=== PATIENT | female | born 1930 | race Caucasian/White ===

== ENCOUNTER 2016-04-11 09:54 | Emergency (ER) | payer MEDICARE, BC ==
--- NOTE | 2016-04-11 10:47 | UC ---
UC General HPI - HPI Summary HPI Summary: Patient had a syncopal episode yesterday landed on a side table and has pain in right ribs. denies dizyyness, lightheaded ness now. does not think she hit her head, no headache or injury. is on 2 BP meds. - History of Current Complaint Chief Complaint: UCDizziness Stated Complaint: RIGHT RIB PAIN FROM FALL Time Seen by Provider: 04/11/16 10:30 Hx Obtained From: Patient Onset/Duration: Sudden Onset, Lasting Days Timing: Constant Onset Severity: Moderate Current Severity: Moderate Pain Intensity: 6 - Allergy/Home Medications Allergies/Adverse Reactions: Allergies Allergy/AdvReac Type Severity Reaction Status Date / Time Meperidine [From Demerol HCl] Allergy Intermediate Unknown Verified 04/11/16 10: 28 Reaction Details Home Medications: Home Medications Aspirin EC Low Dose* [Ecotrin EC Low Dose*] 81 mg PO DAILY 04/11/16 [History Confirmed 04/11/16] Bp Med 1 tab PO DAILY 04/11/16 [History Confirmed 04/11/16] Lisinopril TAB* [Prinivil TAB*] 5 mg PO DAILY 04/11/16 [History Confirmed ] PMH/Surg Hx/FS Hx/Imm Hx Previously Healthy: Yes Cardiovascular History Of: Reports: Hypertension Respiratory History Of: Reports: Asthma - Surgical History Surgical History: Yes Surgery Procedure, Year, and Place: lap marni 2012, appy, tonsillectomy, hysterectomy - Family History Known Family History: Positive: Hypertension - Social History Alcohol Use: None Substance Use Type: None Smoking Status (MU): Never Smoked Tobacco Review of Systems Constitutional: Negative Skin: Negative Eyes: Negative ENT: Negative Respiratory: Negative Cardiovascular: Negative Gastrointestinal: Negative Genitourinary: Negative Motor: Negative Neurovascular: Negative Musculoskeletal: Arthralgia, Edema, Myalgia Neurological: Negative Psychological: Negative All Other Systems Reviewed And Are Negative: Yes Physical Exam Triage Information Reviewed: Yes Appearance: Well-Appearing, Well-Nourished, Pain Distress Vital Signs: Initial Vital Signs Temp 99.5 F 04/11/16 10:30 Pulse 91 04/11/16 10:30 Resp 16 04/11/16 10:30 BP 153/67 04/11/16 10:30 Pulse Ox 100 04/11/16 10:30 Vital Signs Reviewed: Yes Eye Exam: Normal Eyes: Positive: Conjunctiva Clear ENT Exam: Normal ENT: Positive: Normal ENT inspection, Pharynx normal, TMs normal Dental Exam: Normal Neck exam: Normal Neck: Positive: Supple, Nontender, No Lymphadenopathy Respiratory Exam: Normal Respiratory: Positive: Chest non-tender, Lungs clear, No respiratory distress, No accessory muscle use, Decreased breath sounds Cardiovascular Exam: Normal Cardiovascular: Positive: RRR, No Murmur, Pulses Normal Abdominal Exam: Normal Abdomen Description: Positive: Nontender, No Organomegaly, Soft Bowel Sounds: Positive: Present Musculoskeletal: Positive: Strength Intact, ROM Limited @ - trunk movment, Edema @ - right trunk along ribs Neurological Exam: Normal Neurological: Positive: Alert, Muscle Tone Normal Psychological Exam: Normal Psychological: Positive: Age Appropriate Behavior Skin Exam: Normal Course/Dx - Course Course Of Treatment: hx obtained, exam performed, patient is febrile, UA positive, chest xray negative, orthostatic BP are WNL. BP is eleveated, recommend follow up with MD. treated with keflex - Differential Dx - Multi-Symptom Provider Diagnoses: UTI. rib contusion. fever Discharge - Discharge Plan Condition: Stable Disposition: HOME Patient Education Materials: Urinary Tract Infection in Women (ED), Rib Contusion (ED) Additional Instructions: Take the medication as prescribed. I recommend follow up with your Primary MD in one week to make sure you are healing from your rib fracture and that your UTI is clearing up, sooner if you develop worsening symptoms. Also your Blood pressure was high today, may need medication adjustment.
[2016-04-11 11:22] VITALS: BP 183/73
--- NOTE | 2016-04-11 11:44 | RAD ---
INDICATION: Right rib pain COMPARISON: Chest x-ray February 02, 2009 TECHNIQUE: Multiple views of the ribs were obtained. FINDINGS: Bones: There is no evidence of acute nondisplaced rib fracture. Evaluation is limited due to osteopenia. LUNGS: The lungs are clear. There is no pneumothorax. Pleural spaces: There is no evidence of hemothorax. Other: None IMPRESSION: NO DISPLACED RIB FRACTURE IS SEEN. LIMITED EVALUATION DUE TO OSTEOPENIA.
== END 2016-04-11 12:47 | disposition home or self-care (01) ==
LOC: UCCORT 09:54
DX: S20.20XA Contusion of thorax, unspecified, initial encounter (principal); W18.09XA Striking against other object with subsequent fall, initial encounter; Y93.9 Activity, unspecified; Y92.9 Unspecified place or not applicable; N39.0 Urinary tract infection, site not specified; R50.9 Fever, unspecified; Z88.8 Allergy status to other drugs, medicaments and biological substances; I10 Essential (primary) hypertension
CPT/HCPCS: 87086; 93005; 99202; G0463

== ENCOUNTER 2017-07-31 16:12 | Observation (INO) | payer MEDICARE, BC ==
[2017-07-31] MEDS ORDERED: NS 0.9% 1000 ML* 1,000 ML IV ONE (16:15)
--- NOTE | 2017-07-31 16:32 | RAD ---
INDICATION: Neurologic changes, code lora. COMPARISON: There are no prior studies available for comparison. TECHNIQUE: Contiguous axial sections of the brain were obtained from the skull base to the vertex without contrast. FINDINGS: The ventricles, cisterns and sulci are enlarged consistent with diffuse atrophy. There are multiple focal areas of decreased density in the subcortical and periventricular white matter suggestive of moderate chronic small vessel ischemic changes. No other focal abnormality or mass effect is seen. There is no evidence for hemorrhage. No significant focal osseous abnormality is seen. The visualized portion of the paranasal sinuses and mastoid air cells appear clear. The results of this exam were called to referring clinician at 1627 hours. IMPRESSION: 1. NO EVIDENCE FOR GROSS ACUTE INFARCT, MASS EFFECT OR HEMORRHAGE. 2. ATROPHY AND FINDINGS MOST CONSISTENT WITH MODERATE CHRONIC SMALL VESSEL ISCHEMIC CHANGES.
--- NOTE | 2017-07-31 17:01 | RAD ---
INDICATION: Neurologic changes code lora. COMPARISON: Comparison is made with a prior study from February 02, 2009. TECHNIQUE: A portable view of the chest was obtained. FINDINGS: The heart is mildly enlarged and unchanged. The lungs are hyperinflated and clear. No pleural effusion is seen. IMPRESSION: NO EVIDENCE FOR ACUTE DISEASE.
[2017-07-31 17:14] LABS: INR 0.87 (0.77-1.02)
[2017-07-31 17:19] LABS: ABS Basophils 0.1 10^3/ul (0-0.2); ABS Eosinophils 0.1 10^3/ul (0-0.6); ABS Lymphocytes 1.1 10^3/ul (1.0-4.8); ABS Monocytes 0.7 10^3/ul (0-0.8); ABS Neutrophils 18.1 10^3/ul (1.5-7.7); ABS Nucleated RBC 0 10^3/ul; Eosinophil % 0.4 % (0-6); Hematocrit 44 % (35-47); Hemoglobin 14.8 g/dl (12.0-16.0); Lymphocyte % 5.4 % (25-47); Mean Corpuscular HGB Conc 34 g/dl (31-36); Mean Corpuscular Hemoglobin 31 pg (27-31); Mean Corpuscular Volume 91 fL (80-97); Mean Platelet Volume 7.2 um3 (7.4-10.4); Nucleated Red Blood Cells % 0; Platelet Count 285 10^3/ul (150-450); Red Blood Count 4.82 10^6/ul (4.0-5.4); Red Cell Distribution Width 13 % (10.5-15)
[2017-07-31 17:37] LABS: EGFR Non-African American 41.6 (>60)
[2017-07-31] MEDS ORDERED: Aspirin TAB* 325 MG PO ONE (17:56)
[2017-07-31] MEDS ORDERED: Aspirin 81 mg CHEW TAB* 81 MG TAB.CHEW PO ONE (18:29)
--- NOTE | 2017-07-31 18:36 | ED ---
Beau Morris Tiffany, scribed for Viral Iverson MD on 07/31/17 at 1644 . Neurological HPI - HPI Summary HPI Summary: The patient is an 86 y/o F BIBA complains of left-sided facial droop since 15: 40 today. Symptoms aggravated by nothing. Symptoms alleviated by nothing. Denies chest pain. Patient was on phone with daughter at 15:00 today. Per daughter, patient reported not feeling well, stomach was hurting, then phone went silent at 15:10. Daughter asked cousin to stop by patient's house, found her unconscious so called 911. Per EMS, patient was on floor upon arrival at 15: 42. EMS reports no speech, diaphoresis, paleness, left arm not working. Three days ago, daughter reports that patient tripped on and fell from sneaker, but hadn't said anything about it until yesterday. Daughter reports no hx of stroke. - History of Current Complaint Chief Complaint: EDNeurologicalDeficit Stated Complaint: CODE DUEÑAS Time Seen by Provider: 07/31/17 16:15 Hx Obtained From: Family/Consumer Education Specialist - Daughter, EMS Onset/Duration: Sudden Onset, Started minutes ago - 1540 today, Still Present Timing: Constant Aggravating: Nothing Alleviating: Nothing Associated Signs and Symptoms: Negative: Chest Pain - Allergy/Home Medications Allergies/Adverse Reactions: Allergies Allergy/AdvReac Type Severity Reaction Status Date / Time meperidine [From Demerol] Allergy Intermediate Unknown Verified 07/31/17 17:54 Reaction Details Home Medications: Home Medications amLODIPine TAB* [Norvasc 5 mg TAB*] 5 mg PO DAILY 07/31/17 [History Confirmed ] PMH/Surg Hx/FS Hx/Imm Hx Previously Healthy: No Cardiovascular History: Reports: Hx Hypertension Respiratory History: Reports: Hx Asthma Neurological History: Denies: Hx Transient Ischemic Attacks (TIA) - Cancer History Cancer Type, Location and Year: skin cancer w/ 2 excisions (right neck & right shoulder) - Surgical History Surgery Procedure, Year, and Place: lap marni 2012, appy, tonsillectomy, hysterectomy Infectious Disease History: No Infectious Disease History: Denies: Traveled Outside the [place] in Last 30 Days - Family History Known Family History: Positive: Hypertension - Social History Alcohol Use: None Hx Substance Use: No Substance Use Type: Reports: None Hx Tobacco Use: No Smoking Status (MU): Never Smoked Tobacco Review of Systems Positive: Skin Diaphoresis, Other - Paleness Negative: Chest Pain Neurological: Other - left-sided facial droop, no speech, LOC, left arm not working All Other Systems Reviewed And Are Negative: Yes Physical Exam - Summary Physical Exam Summary: General: well-appearing, no pain distress Skin: warm, color reflects adequate perfusion, dry Head: normal Eyes: EOMI, MARIS ENT: normal Neck: supple, nontender Respiratory: CTA, breath sounds present Cardiovascular: RRR Abdomen: soft, nontender Bowel: present Musculoskeletal: normal, strength/ROM intact Neurological: Quiet but responds to voice, speaks with 1 or 2 words, opens eyes on her own, answers questions on her own Psychological: affect/mood appropriate Triage Information Reviewed: Yes Vital Signs On Initial Exam: Initial Vitals Temp Pulse Resp BP Pulse Ox 96.9 F 94 18 161/67 96 07/31/17 16:24 07/31/17 16:24 07/31/17 16:24 07/31/17 16:24 07/31/17 16:24 Vital Signs Reviewed: Yes Diagnostics - Vital Signs Vital Signs Temp Pulse Resp BP Pulse Ox 07/31/17 16:24 96.9 F 94 18 161/67 96 - Laboratory Lab Results: Lab Results 07/31/17 07/31/17 07/31/17 Range/Units 16:29 16:51 17:10 WBC 20.0 H (3.5-10.8) 10^3/ul RBC 4.82 (4.0-5.4) 10^6/ul Hgb 14.8 (12.0-16.0) g/dl Hct 44 (35-47) % MCV 91 (80-97) fL MCH 31 (27-31) pg MCHC 34 (31-36) g/dl RDW 13 (10.5-15) % Plt Count 285 (150-450) 10^3/ul MPV 7.2 L (7.4-10.4) um3 Neut % (Auto) 90.1 H (38-83) % Lymph % (Auto) 5.4 L (25-47) % Mcminn % (Auto) 3.7 (0-7) % Eos % (Auto) 0.4 (0-6) % Baso % (Auto) 0.4 (0-2) % Absolute Neuts (auto) 18.1 H (1.5-7.7) 10^3/ul Absolute Lymphs (auto) 1.1 (1.0-4.8) 10^3/ul Absolute Monos (auto) 0.7 (0-0.8) 10^3/ul Absolute Eos (auto) 0.1 (0-0.6) 10^3/ul Absolute Basos (auto) 0.1 (0-0.2) 10^3/ul Absolute Nucleated RBC 0 10^3/ul Nucleated RBC % 0 INR (Anticoag Therapy) 0.87 (0.77-1.02) APTT 25.7 L (26.0-36.3) seconds Sodium (139-145) mmol/L Potassium (3.5-5.0) mmol/L Chloride (101-111) mmol/L Carbon Dioxide (22-32) mmol/L Anion Gap (2-11) mmol/L BUN (6-24) mg/dL Creatinine (0.51-0.95) mg/dL Est GFR ( Amer) (>60) Est GFR (Non-Af Amer) (>60) BUN/Creatinine Ratio (8-20) Glucose (70-100) mg/dL POC Glucose (mg/dL) 189 H (70-100) mg/dL Lactic Acid (0.5-2.0) mmol/L Calcium (8.6-10.3) mg/dL Total Bilirubin (0.2-1.0) mg/dL AST (13-39) U/L ALT (7-52) U/L Alkaline Phosphatase (34-104) U/L Troponin I (<0.04) ng/mL Total Protein (6.4-8.9) g/dL Albumin (3.2-5.2) g/dL Globulin (2-4) g/dL Albumin/Globulin Ratio (1-3) Triglycerides mg/dL Cholesterol mg/dL LDL Cholesterol mg/dL HDL Cholesterol mg/dL Blood Type Antibody Screen 07/31/17 07/31/17 07/31/17 Range/Units 17:10 17:10 17:10 WBC (3.5-10.8) 10^3/ul RBC (4.0-5.4) 10^6/ul Hgb (12.0-16.0) g/dl Hct (35-47) % MCV (80-97) fL MCH (27-31) pg MCHC (31-36) g/dl RDW (10.5-15) % Plt Count (150-450) 10^3/ul MPV (7.4-10.4) um3 Neut % (Auto) (38-83) % Lymph % (Auto) (25-47) % Mcminn % (Auto) (0-7) % Eos % (Auto) (0-6) % Baso % (Auto) (0-2) % Absolute Neuts (auto) (1.5-7.7) 10^3/ul Absolute Lymphs (auto) (1.0-4.8) 10^3/ul Absolute Monos (auto) (0-0.8) 10^3/ul Absolute Eos (auto) (0-0.6) 10^3/ul Absolute Basos (auto) (0-0.2) 10^3/ul Absolute Nucleated RBC 10^3/ul Nucleated RBC % INR (Anticoag Therapy) (0.77-1.02) APTT (26.0-36.3) seconds Sodium 132 L (139-145) mmol/L Potassium 3.5 (3.5-5.0) mmol/L Chloride 99 L (101-111) mmol/L Carbon Dioxide 22 (22-32) mmol/L Anion Gap 11 (2-11) mmol/L BUN 21 (6-24) mg/dL Creatinine 1.23 H (0.51-0.95) mg/dL Est GFR ( Amer) 53.5 (>60) Est GFR (Non-Af Amer) 41.6 (>60) BUN/Creatinine Ratio 17.1 (8-20) Glucose 286 H (70-100) mg/dL POC Glucose (mg/dL) (70-100) mg/dL Lactic Acid 2.7 H* (0.5-2.0) mmol/L Calcium 9.3 (8.6-10.3) mg/dL Total Bilirubin 0.40 (0.2-1.0) mg/dL AST 20 (13-39) U/L ALT 14 (7-52) U/L Alkaline Phosphatase 64 (34-104) U/L Troponin I 0.00 (<0.04) ng/mL Total Protein 6.6 (6.4-8.9) g/dL Albumin 4.0 (3.2-5.2) g/dL Globulin 2.6 (2-4) g/dL Albumin/Globulin Ratio 1.5 (1-3) Triglycerides 126 mg/dL Cholesterol 235 mg/dL LDL Cholesterol 159 mg/dL HDL Cholesterol 50.6 mg/dL Blood Type O Negative Antibody Screen Negative Result Diagrams: 07/31/17 17:10 07/31/17 17:10 Lab Statement: Any lab studies that have been ordered have been reviewed, and results considered in the medical decision making process. - Radiology CXR Radiology Interpretation Completed By: Radiologist - 1. NO EVIDENCE FOR GROSS ACUTE INFARCT, MASS EFFECT OR HEMORRHAGE. 2. ATROPHY AND FINDINGS MOST CONSISTENT WITH MODERATE CHRONIC SMALL VESSEL ISCHEMIC CHANGES. - CT Brain CT Interpretation Completed By: Radiologist - 1. NO EVIDENCE FOR GROSS ACUTE INFARCT, MASS EFFECT OR HEMORRHAGE. 2. ATROPHY AND FINDINGS MOST CONSISTENT WITH MODERATE CHRONIC SMALL VESSEL ISCHEMIC. ED physician has reviewed this report. - EKG 16:24 Cardiac Rate: NL - 94 BPM EKG Rhythm: Sinus Rhythm Ectopy: None EKG Interpretation: Borderline T abnormalities in the inferior leads. NIH Scale - NIH Scale Level of Consciousness: Responds to Minor Stimulation Ask Patient the Month and His/Her Age: Both Correct Ask Pt to Open/Close Eyes and Yard Coordinator/Release Non-Paretic Hand: Both Correctly Best Gaze (Only Horizontal Eye Movement): Normal Visual Field Testing: No Visual Loss Facial Paresis-Pt to Smile & Close Eyes or Grimace Symmetry: Minor Paralysis Motor Function - Right Arm: No Drift-Holds 10 Seconds Motor Function - Left Arm: No Effort Against [place] Motor Function - Right Leg: No Drift-Holds 10 Seconds Motor Function - Left Leg: Effort Against [place] Limb Ataxia-Must be out of Proportion to Weakness Present: Absent Sensory (Use Pinprick to Test Arms/Legs/Trunk/Face): Normal Best Language (Describe Picture, Name Items): No Aphasia Dysarthria (Read Several Words): Normal Extinction and Inattention: No Abnormality Total Score: 7 Course/Dx - Course Course Of Treatment: Medications reviewed. Allergies noted. DISCUSSED WITH STRONG NEUROLOGY. RAPID NEUROLOGIC SX IMPROVEDMENT IN ED. NIH ZERO ON HIS EXAM THEREFORE, NO TPA AT THIS TIME. WILL ADMIT FOR FURTHER EVALUATION. ADMIT HOSPITALIST. - Diagnoses Provider Diagnoses: TIA (transient ischemic attack), Altered mental state During the Visit The Following Alert/Code Occurred: Code Dueñas - 1350 - Physician Notifications Discussed Care Of Patient With: Glen Garcia Time Discussed With Above Provider: 17:52 Instructed by Provider To: Other - Dr. Garcia, hospitalist, recommends getting head and neck CTA. - Critical Care Time Critical Care Time: 30-74 min Discharge - Sign-Out/Discharge Documenting (check all that apply): Discharge/Admit/Transfer - Discharge Plan Condition: Stable Disposition: ADMITTED TO [facility] Referrals: Janice Richardson MD [Primary Care Provider] - - Billing Disposition and Condition Condition: STABLE Disposition: [facility] [place] The documentation as recorded by the Beau kamara Tiffany accurately reflects the service I personally performed and the decisions made by me, Viral Iverson MD.
[2017-07-31] MEDS ORDERED: Ondansetron ODT TAB* 4 MG SL PRN (18:37)
[2017-07-31] MEDS ORDERED: Iodixanol* (CONTRAST) 320 MG/ML 100 ML SDV IV SCH (18:48)
[2017-07-31] MEDS: Atorvastatin* 40 MG TAB PO SCH (19:52)
[2017-07-31] MEDS: NS 0.9% 1000 ML* 1,000 ML IV SCH (19:53)
--- NOTE | 2017-07-31 21:13 | RAD ---
INDICATION: Altered mental status left face arm and leg weakness, resolved. COMPARISON: Comparison is made with a prior CT of the brain of the same day. TECHNIQUE: A CT angiogram of the head and neck was performed following intravenous injection of 80 ml of Visipaque 320 nonionic contrast. Contiguous axial sections were obtained from the thoracic inlet through the skull vertex. Images were reconstructed in the coronal and sagittal planes and in a 3-D volume rendered format. The distal cervical internal carotid artery diameter is used as the denominator for stenosis measurement. FINDINGS: RIGHT CAROTID: The common carotid artery appears widely patent. There is mild calcific soft plaque within the carotid bulb and proximal internal carotid artery giving rise to approximately a 20% stenosis. LEFT CAROTID: The left common carotid artery is widely patent. There is moderate soft and calcific plaque present within the carotid bulb and proximal internal carotid artery giving rise to approximately a 40% stenosis. No hemodynamically significant stenosis is seen. VERTEBRALS: The vertebral arteries appear widely patent. CTA BRAIN: The internal carotid, anterior and middle cerebral arteries appear patent without evidence for high-grade stenosis or occlusion. There is calcific plaque present within the cavernous portion of the internal carotid arteries. The vertebral, basilar and posterior cerebral arteries appear patent without evidence for high-grade stenosis or occlusion. No gross focal perfusion abnormalities are seen. No aneurysm or vascular malformation is seen. NECK: No significant enlarged lymph nodes are seen within the neck. The thyroid, parotid and submandibular glands appear to be within normal limits. The lung apices appear clear. The paranasal sinuses and mastoid air cells appear clear IMPRESSION: 1. NO EVIDENCE FOR HEMODYNAMICALLY SIGNIFICANT CAROTID STENOSIS. 2. NO EVIDENCE FOR LARGE VESSEL INTRACRANIAL THROMBUS. CPT II Codes: 3100F
[2017-07-31] MEDS: Heparin VIAL(*) 5000 UNITS/ML VIAL (FIVE THOUSAND) SUBCUT SCH (21:16)
--- NOTE | 2017-07-31 21:43 | HP ---
CC: Dr. Richardson * [facility] MEDICINE HISTORY AND PHYSICAL: DATE OF ADMISSION: 07/31/17 PRIMARY CARE PHYSICIAN: Dr. Richardson. ATTENDING PHYSICIAN: Agus Garcia MD * (dictation provided by Grace Boateng NP) CHIEF COMPLAINT: Unresponsive episode with left-sided weakness. HISTORY OF PRESENT ILLNESS: Ms. Rand is an 86-year-old female with a past medical history of hypertension, who presents to the hospital today after having an unresponsive episode followed by left-sided weakness. Ms. Rand reports that she was feeling well yesterday with no acute complaints. When she awoke this morning, she did not feel well, but she is unable to characterize that further. She seems to describe just feeling tired and having some generalized malaise. The family who are at the bedside reports that she had fallen a couple of weeks ago and had some bruising along her ribs and since then had been complaining of not feeling so well. The patient this morning per the family's report also had complained of some nausea and when I reminded the patient of this, she does agree. The patient at about 3:10 p.m. was on the phone with her daughter when she suddenly disconnected the call unexpectedly. The daughter tried to call back, but the mother did not answer the phone. The daughter called over another family member to check on the patient and per one report the patient was on the floor, but per the report from the family that I have obtained today, she was actually sitting in her recliner. The family reports that she was minimally responsive to unresponsive and therefore EMS was called. On EMS' arrival, they report that she had left-sided facial droop and left- sided weakness of both upper and lower extremity. They transported her here and at least by the time she arrived, she was more awake and interactive and talking to the emergency room doctors. The emergency room doctor states that she had persistent left upper extremity weakness with only some minimal lower extremity weakness and he did not specifically note a left-sided facial droop. The patient did seem a bit confused, although she would answer yes and no questions well. By the time the telestroke were contacted and brought in to the room, the patient's symptoms had resolved. In addition to this, since arriving to the emergency room, Ms. Rand has had copious liquid diarrhea. She reports some tenderness in her abdomen that is generalized. Her abdomen is soft. She states that she has had no diarrhea up until this point. Nursing staff report that she is unable to control her bowels and is continuously leaking liquid stool; stool is brown. No melena or blood in the stool. The patient denies any cramping. She denies any nausea, but just states that it is mildly tender with deep palpation throughout. In addition to this diarrhea in the emergency room, she was noted to have a white blood cell count of 20. We have no previous for comparison. She has hyponatremia with sodium of 132; again no previous. Her creatinine is 1.23. Lactic acid is 2.7. Glucose is 286. Her troponin is 0.00. CRP is pending. Because of the concern for stroke, the patient went for a CT of the brain, which showed "no evidence for gross acute infarct, mass effect, hemorrhage, atrophy and findings most consistent with moderate chronic small vessel ischemic changes." She had a chest x-ray, which showed no evidence for acute disease. EKG showed sinus rhythm with a heart rate of about 90, no evidence of ischemia. PAST MEDICAL HISTORY: 1. Hypertension. 2. Questions of heart murmur. 3. Aortic aneurysm. 4. Cholecystectomy. 5. Tonsillectomy. 6. Appendectomy. 7. Hysterectomy. 8. History of skin cancer to right arm and neck. MEDICATIONS: Outpatient are: 1. Aspirin 81 mg p.o. daily. 2. Amlodipine 5 mg p.o. daily. 3. Lisinopril 20 mg p.o. daily. ALLERGIES: MEPERIDINE. FAMILY HISTORY: The patient reports mother and father related to old age. The family offered that the mother had dementia and her father had coronary artery disease. SOCIAL HISTORY: No report of alcohol, tobacco, or drug use. The patient lives alone. She states her healthcare proxy will be Amadou, her son. REVIEW OF SYSTEMS: A 14-point review of systems was completed with Ms. Rand and all those not mentioned above were negative. PHYSICAL EXAMINATION GENERAL: Ms. Rand is lying in the bed with the family at the bedside. She is in no acute distress. She is hard of hearing. VITAL SIGNS: Blood pressure 176/71, heart rate 97, temperature 96.9, respiratory rate 23, O2 saturation 98% on room air. LUNGS: Clear to auscultation bilaterally with no accessory muscle use and good aeration. HEART: S1, S2. No murmur, rub, or gallop appreciated today. ABDOMEN: Soft. There is generalized tenderness throughout with deep palpation. There is no rebound or guarding. Bowel sounds are positive. EXTREMITIES: No cyanosis or edema. NEURO: She is alert. She is oriented x3. She moves all extremities equally. There is no facial asymmetry or focal weakness. Extraocular movements are intact. There is no ataxia. There is no pronator drift. SKIN: Intact. The patient does have some bruising noted on both upper extremities. LABORATORY DATA/DIAGNOSTIC STUDIES: Sodium 132, potassium 3.5, chloride 99, serum bicarbonate 22, BUN 21, creatinine 1.23, glucose 286. Lactic acid 2.7. WBC 20.0, hemoglobin 14.8, hematocrit 44, platelet count 285. INR 0.87. CT brain and chest x-ray and EKG all as read per above. ASSESSMENT AND PLAN: Ms. Rand is an 86-year-old female with a past medical history of hypertension, who presents to the hospital today with concern for an unresponsive episode followed by left-sided weakness when she awoke, now with copious liquid diarrhea in the emergency room. Our plans are for observation in the hospital for the followin. Unresponsiveness followed by left-sided weakness: Certainly, these symptoms are concerning for stroke and/or possibly seizure. The patient is completely asymptomatic at this point. Recommendation in terms of workup for TIA/stroke would include CTA head and neck and MRI brain. The patient will have telemetry monitoring and a transthoracic echocardiogram. Plan to start atorvastatin for abnormal cholesterol profile at 40 mg a day. The patient has had aspirin in the emergency room per the emergency room nurse. For concern of seizure, plan to check EEG tomorrow. However, based on the fact that the patient has had copious diarrhea in the emergency room and has a white blood cell count of 20 with slight tachycardia, I suspect that some of presentation is likely related to acute onset of diarrheal illness. She denies any recent exposure to antibiotics or any sick contacts. She denies any unusual food intakes that were suspicious. Plan to check blood, stool cultures and to provide intravenous fluids. She does just meet sepsis criteria with a heart rate of 100 and white blood cell count of 20; however, her blood pressure is 160 and I am hesitant to hydrate with a full 30 mL/kg given that there is also concern for stroke and that elevated blood pressure much above 160 would not be tolerated well. She has had 1000 mL of normal saline in the emergency room. We will continue with 150 mL per hour for 2 additional bags. We will continue to monitor closely and add additional fluids as needed or as can be tolerated. I have reached out with a phone call to Dr. Mejia, but I have not received a call back from him yet. If we would not hear from him tonight, we will talk to Neurology again tomorrow regarding possible consultation. 2. Hypertension. Plan to continue amlodipine, but for the moment, I am holding lisinopril for the a.m. until her blood pressure can be reevaluated. 3. DVT prophylaxis with heparin subcu. 4. Code status is full code. TIME SPENT: Approximately 60 minutes were spent on the admission of this patient, and more than half of the time was spent with the patient at the bedside reviewing the events leading up to this hospitalization, performing the physical examination and reviewing my plan of care. GRACE BOATENG NP [id number]/CPS #: [id number] TOR
[2017-08-01] MEDS: NS 0.9% 1000 ML* 1,000 ML IV SCH (03:56)
[2017-08-01 06:17] LABS: ABS Basophils 0 10^3/ul (0-0.2); ABS Eosinophils 0 10^3/ul (0-0.6); ABS Lymphocytes 1.6 10^3/ul (1.0-4.8); ABS Monocytes 0.9 10^3/ul (0-0.8); ABS Neutrophils 14.6 10^3/ul (1.5-7.7); ABS Nucleated RBC 0 10^3/ul; Eosinophil % 0 % (0-6); Hematocrit 37 % (35-47); Hemoglobin 12.8 g/dl (12.0-16.0); Lymphocyte % 9.1 % (25-47); Mean Corpuscular HGB Conc 35 g/dl (31-36); Mean Corpuscular Hemoglobin 31 pg (27-31); Mean Corpuscular Volume 90 fL (80-97); Mean Platelet Volume 7.5 um3 (7.4-10.4); Nucleated Red Blood Cells % 0; Platelet Count 249 10^3/ul (150-450); Red Blood Count 4.12 10^6/ul (4.0-5.4); Red Cell Distribution Width 13 % (10.5-15); White Blood Count 17.1 10^3/ul (3.5-10.8)
[2017-08-01 06:33] LABS: EGFR Non-African American 72.5 (>60)
[2017-08-01] MEDS: Heparin VIAL(*) 5000 UNITS/ML VIAL (FIVE THOUSAND) SUBCUT SCH ×3 (08:29→21:28)
[2017-08-01] MEDS: Aspirin EC TAB* 81 MG TAB.EC PO SCH (08:29)
[2017-08-01] MEDS: amLODIPine TAB* 5 MG PO SCH (08:29)
[2017-08-01] MEDS: Acetaminophen TAB* 325 MG PO PRN ×2 (09:54→17:25)
[2017-08-01 10:40] LABS: Urine Appearance Cloudy; Urine Blood 2+ (Negative); Urine Color Yellow; Urine Ketones Negative (Negative); Urine Protein Negative (Negative); Urine Specific Gravity 1.028 (1.010-1.030); Urine Urobilinogen Negative (Negative)
--- NOTE | 2017-08-01 13:58 | RAD ---
INDICATION: Left-sided weakness, resolved. COMPARISON: Comparison is made with a prior CT of the brain from July 31, 2017. TECHNIQUE: Sagittal T1, axial T1, T2, susceptibility, FLAIR and diffusion weighted images were obtained. FINDINGS: The ventricles, cisterns and sulci are prominent consistent with diffuse atrophy. There are focal areas of increased signal intensity on T2-weighted images present in the subcortical and periventricular white matter most consistent with moderate chronic small vessel ischemic changes. No other focal abnormality or mass effect is seen. No areas of restricted diffusion are present. There is no evidence for infarct or hemorrhage. The visualized portion of the paranasal sinuses and mastoid air cells appear clear. IMPRESSION: 1. NO EVIDENCE FOR ACUTE INTRACRANIAL ABNORMALITY. 2. ATROPHY AND MODERATE CHRONIC SMALL VESSEL ISCHEMIC CHANGES.
[2017-08-01] MEDS: Atorvastatin* 40 MG TAB PO SCH (17:18)
--- NOTE | 2017-08-01 17:45 | ECHO ---
Patient: [facility] Rec#: [id number] : 1930 Date: 08/01/2017 Age: 86y Height: 157.48 cm / 62.0 in Weight: 63.05 kg / 139.0 lbs Sex: F BSA: 1.64 Room#: [facility] Admit Date#: 07/31/2017 Type: Inpatient Referring: Grace Boateng NP Reading: Darshan Chandler MD [place] Worker: Stephany LeivaRDCS,RDMS Transthoracic Echocardiogram Indication: TIA BP: 132/43 HR: 95 Rhythm: NSR Findings History: HTN, murmur, AO aneurysm Technical Comments: The study quality is good. Left Ventricle: The left ventricular chamber size is normal. Mild concentric left ventricular hypertrophy is observed. Global left ventricular wall motion and contractility are within normal limits. There is normal left ventricular systolic function. The estimated ejection fraction is 60-65%. Abnormal left ventricular diastolic function is observed. Left Atrium: The left atrium is mildly dilated. Right Ventricle: The right ventricular chamber size and systolic function are within normal limits. Right Atrium: The right atrial cavity size is normal. Aortic Valve: The aortic valve is trileaflet. Systolic excursion of the aortic valve is normal. There is trace to mild aortic regurgitation. Mitral Valve: The mitral valve leaflets are mildly thickened. There is no evidence of mitral regurgitation. There is no evidence of mitral stenosis. Tricuspid Valve: The tricuspid valve leaflets are normal. There is trace tricuspid regurgitation. There is evidence of mild pulmonary hypertension. Pulmonic Valve: There is trace to mild pulmonic regurgitation. Pericardium: There is no significant pericardial effusion. Aorta: The aortic root appears normal. There is no dilatation of the aortic arch. Pulmonary Artery: The main pulmonary artery appears normal. Venous: The inferior vena cava appears normal in size. There is a greater than 50% respiratory change in the inferior vena cava dimension. Conclusions Mild concentric left ventricular hypertrophy is observed. Global left ventricular wall motion and contractility are within normal limits. There is normal left ventricular systolic function. The estimated ejection fraction is 60-65%. The right ventricular chamber size and systolic function are within normal limits. There is trace to mild aortic regurgitation. There is no evidence of mitral regurgitation. There is trace tricuspid regurgitation. There is no significant pericardial effusion. Measurements Name Value Normal Range RVIDd (AP) 2D 2.4 cm (0.9 - 2.6) RVDdMajor (2D) 2.3 cm (2.2 - 4.4) RAd ISD 4CH 4.9 cm (3.4 - 4.9) RA (A4C)W 3.3 cm (2.9 - 4.6) IVSd (2D) 1.1 cm (0.6 - 1) LVPWd (2D) 1.1 cm (0.6 - 1) LVIDd (2D) 3.7 cm (3.6 - 5.4) LVIDs (2D) 2.5 cm - LV FS (2D) 32 % (25 - 45) Aortic Annulus 2.1 cm (1.4 - 2.6) Ao root diameter (2D) 3.3 cm (2.1 - 3.5) Ascending Ao 3.2 cm (2.1 - 3.4) Aortic arch 3.4 cm (1.8 - 3.4) LA dimension (AP) 2D 3.6 cm (2.3 - 3.8) LAd ISD 4CH 5.1 cm (2.9 - 5.3) LA ISD 4CH W 3.7 cm (2.5 - 4.5) Name Value Normal Range LA ESV SP 4CH (A/L) 43.56 ml - LA ESV SP 2CH (A/L) 88.04 ml - LA ESV BP (A/L) 67.78 ml - LA ESV BP (A/L) index 41 ml/m2 - LA ESV SP 4CH (MOD) 41.39 ml - LA ESV SP 2CH (MOD) 85.54 ml - Name Value Normal Range MV E-wave Vmax 1 m/sec - MV deceleration time 170 msec - MV A-wave Vmax 0.8 m/sec - MV E:A ratio 1.3 ratio - P. vein S-wave Vmax 0.6 m/sec - P. vein D-wave Vmax 0.5 m/sec - P. vein S:D Vmax ratio 1 ratio - P. vein A-wave duration 61 msec - LV septal e' Vmax 0.08 m/sec - LV lateral e' Vmax 0.08 m/sec - LV E:e' septal ratio 12.5 ratio - LV E:e' lateral ratio 12.5 ratio - Name Value Normal Range AV Vmax 1.6 m/sec - AV VTI 28 cm - AV peak gradient 10 mmHg - AV mean gradient 4.4 mmHg - LVOT Vmax 1.3 m/sec - LVOT VTI 24.1 cm - LVOT peak gradient 7 mmHg - LVOT mean gradient 3.1 mmHg - DONALDO Vmax 0.7 m/sec - Name Value Normal Range TR Vmax 2.8 m/sec - TR peak gradient 31 mmHg - RAP 3 mmHg - RVSP 34 mmHg - IVC diameter 1.9 cm - Name Value Normal Range PV Vmax 1.3 m/sec - PV peak gradient 7 mmHg -
--- NOTE | 2017-08-01 19:19 | PN ---
Subjective Date of Service: 08/01/17 Interval History: Patient reports she isnt sure what happened. she denies hx of seizures in the past. denies left sided weakness. Offers no complaints at this time. Objective Active Medications: Acetaminophen (Tylenol Tab*) 650 mg PO Q6H PRN PRN Reason: FEVER/PAIN Last Admin: 08/01/17 17:25 Dose: 650 mg Amlodipine Besylate (Norvasc Tab*) 5 mg PO DAILY [facility] Last Admin: 08/01/17 08:29 Dose: 5 mg Aspirin (Aspirin Ec Tab*) 81 mg PO DAILY [facility] Last Admin: 08/01/17 08:29 Dose: 81 mg Atorvastatin Calcium (Lipitor*) 40 mg PO 1700 [facility] Last Admin: 08/01/17 17:18 Dose: 40 mg Heparin Sodium (Porcine) (Heparin Vial(*)) 5,000 units SUBCUT Q8HR [facility] Last Admin: 08/01/17 12:56 Dose: 5,000 units Sodium Chloride (Ns 0.9% 1000 Ml*) 1,000 mls @ 150 mls/hr IV PER RATE [facility] Stop: 08/02/17 01:24 Last Admin: 08/01/17 03:56 Dose: 150 mls/hr Iodixanol (Visipaque* 320 (Contrast)) 80 ml IV ONCE [facility] Stop: 08/02/17 18:47 Last Admin: 07/31/17 20:42 Dose: 80 ml Ondansetron HCl (Zofran Odt Tab*) 4 mg SL Q6H PRN PRN Reason: NAUSEA/VOMITING Vital Signs - 8 hr 08/01/17 08/01/17 08/01/17 11:36 12:36 16:00 Temperature 99.9 F 99.9 F 98.0 F Pulse Rate 92 90 92 Respiratory 20 20 20 Rate Blood Pressure 138/48 138/48 138/50 (mmHg) O2 Sat by Pulse 98 100 98 Oximetry Oxygen Devices in Use Now: None Appearance: eldelry female sitting up on the side of her bed eating in NAD, A+O Eyes: No Scleral Icterus, PERRLA Ears/Nose/Mouth/Throat: NL Teeth, Lips, Gums, Mucous Membranes Moist Neck: NL Appearance and Movements; NL JVP Respiratory: Symmetrical Chest Expansion and Respiratory Effort, Clear to Auscultation Cardiovascular: RRR, No Edema Abdominal: NL Sounds; No Tenderness; No Distention Lymphatic: No Cervical Adenopathy Extremities: No Clubbing, Cyanosis Skin: No Rash or Ulcers, No Nodules or Sclerosis Neurological: Alert and Oriented x 3, NL Sensation, NL Muscle Strength and Tone Lines/Tubes/Other Access: Clean, Dry and Intact Peripheral IV Nutrition: Taking PO's Result Diagrams: 08/01/17 05:44 08/01/17 05:44 Additional Lab and Data: Lab Results 07/31/17 07/31/17 07/31/17 Range/Units 16:29 16:51 17:10 WBC 20.0 H (3.5-10.8) 10^3/ul RBC 4.82 (4.0-5.4) 10^6/ul Hgb 14.8 (12.0-16.0) g/dl Hct 44 (35-47) % MCV 91 (80-97) fL MCH 31 (27-31) pg MCHC 34 (31-36) g/dl RDW 13 (10.5-15) % Plt Count 285 (150-450) 10^3/ul MPV 7.2 L (7.4-10.4) um3 Neut % (Auto) 90.1 H (38-83) % Lymph % (Auto) 5.4 L (25-47) % Johnson % (Auto) 3.7 (0-7) % Eos % (Auto) 0.4 (0-6) % Baso % (Auto) 0.4 (0-2) % Absolute Neuts (auto) 18.1 H (1.5-7.7) 10^3/ul Absolute Lymphs (auto) 1.1 (1.0-4.8) 10^3/ul Absolute Monos (auto) 0.7 (0-0.8) 10^3/ul Absolute Eos (auto) 0.1 (0-0.6) 10^3/ul Absolute Basos (auto) 0.1 (0-0.2) 10^3/ul Absolute Nucleated RBC 0 10^3/ul Nucleated RBC % 0 INR (Anticoag Therapy) 0.87 (0.77-1.02) APTT 25.7 L (26.0-36.3) seconds Sodium (139-145) mmol/L Potassium (3.5-5.0) mmol/L Chloride (101-111) mmol/L Carbon Dioxide (22-32) mmol/L Anion Gap (2-11) mmol/L BUN (6-24) mg/dL Creatinine (0.51-0.95) mg/dL Est GFR ( Amer) (>60) Est GFR (Non-Af Amer) (>60) BUN/Creatinine Ratio (8-20) Glucose (70-100) mg/dL POC Glucose (mg/dL) 189 H (70-100) mg/dL Lactic Acid (0.5-2.0) mmol/L Calcium (8.6-10.3) mg/dL Total Bilirubin (0.2-1.0) mg/dL AST (13-39) U/L ALT (7-52) U/L Alkaline Phosphatase (34-104) U/L Troponin I (<0.04) ng/mL Total Protein (6.4-8.9) g/dL Albumin (3.2-5.2) g/dL Globulin (2-4) g/dL Albumin/Globulin Ratio (1-3) Triglycerides mg/dL Cholesterol mg/dL LDL Cholesterol mg/dL HDL Cholesterol mg/dL Blood Type Antibody Screen 07/31/17 07/31/17 07/31/17 Range/Units 17:10 17:10 17:10 WBC (3.5-10.8) 10^3/ul RBC (4.0-5.4) 10^6/ul Hgb (12.0-16.0) g/dl Hct (35-47) % MCV (80-97) fL MCH (27-31) pg MCHC (31-36) g/dl RDW (10.5-15) % Plt Count (150-450) 10^3/ul MPV (7.4-10.4) um3 Neut % (Auto) (38-83) % Lymph % (Auto) (25-47) % Johnson % (Auto) (0-7) % Eos % (Auto) (0-6) % Baso % (Auto) (0-2) % Absolute Neuts (auto) (1.5-7.7) 10^3/ul Absolute Lymphs (auto) (1.0-4.8) 10^3/ul Absolute Monos (auto) (0-0.8) 10^3/ul Absolute Eos (auto) (0-0.6) 10^3/ul Absolute Basos (auto) (0-0.2) 10^3/ul Absolute Nucleated RBC 10^3/ul Nucleated RBC % INR (Anticoag Therapy) (0.77-1.02) APTT (26.0-36.3) seconds Sodium 132 L (139-145) mmol/L Potassium 3.5 (3.5-5.0) mmol/L Chloride 99 L (101-111) mmol/L Carbon Dioxide 22 (22-32) mmol/L Anion Gap 11 (2-11) mmol/L BUN 21 (6-24) mg/dL Creatinine 1.23 H (0.51-0.95) mg/dL Est GFR ( Amer) 53.5 (>60) Est GFR (Non-Af Amer) 41.6 (>60) BUN/Creatinine Ratio 17.1 (8-20) Glucose 286 H (70-100) mg/dL POC Glucose (mg/dL) (70-100) mg/dL Lactic Acid 2.7 H* (0.5-2.0) mmol/L Calcium 9.3 (8.6-10.3) mg/dL Total Bilirubin 0.40 (0.2-1.0) mg/dL AST 20 (13-39) U/L ALT 14 (7-52) U/L Alkaline Phosphatase 64 (34-104) U/L Troponin I 0.00 (<0.04) ng/mL Total Protein 6.6 (6.4-8.9) g/dL Albumin 4.0 (3.2-5.2) g/dL Globulin 2.6 (2-4) g/dL Albumin/Globulin Ratio 1.5 (1-3) Triglycerides 126 mg/dL Cholesterol 235 mg/dL LDL Cholesterol 159 mg/dL HDL Cholesterol 50.6 mg/dL Blood Type O Negative Antibody Screen Negative Microbiology and Other Data: Microbiology 07/31/17 18:52 Stool Gross Appearance - Final Stool Shiga Toxin I & II - Final Negative Shiga Toxin 1 & 2 Assess/Plan/Problems-Billing Assessment: Ms. Rand is a 86 yo female with a PMH of HTN who presented 5 with report of left-sided weakness who was found to have an unresponsive episode followed by left-sided weakness. - Patient Problems (1) Change in mental status Comment: appreciate neuro consult - suspects seizure with post-ictal phase. EEG showing some slowing. MRI showing no acute CVA. Recommends monitoring on tele overnight and if stable ok to DC home tomorrow, recommends DC ASA and started Plavix using mon-therapy only on DC (2) HTN (hypertension) Comment: controlled on home dose norvasc (3) DVT prophylaxis Comment: HSQ (4) Full code status Status and Disposition: OBV. if stable can be DC to home tomorrow.
--- NOTE | 2017-08-02 00:04 | CONS ---
NEUROLOGY CONSULTATION: DATE OF CONSULTATION: 08/01/17. LOCATION: She is an inpatient and she is in room #441. REFERRING PROVIDER: Grace Boateng NP PRIMARY CARE PHYSICIAN: Janice Richardson M.D. CHIEF COMPLAINT: Left-sided weakness, unresponsiveness. HISTORY OF PRESENT ILLNESS: Alethea Rand is an 86-year-old right-handed woman who was brought into the emergency room yesterday and after her family called the ambulance. She was apparently talking to her daughter on the phone and reviewing Grace Boateng' admission notes. She apparently suddenly stopped responding. Daughter called someone closer, who went to evaluate her. She was apparently found seated and unresponsive with weakness on her left face and arm and leg. Ambulance was summoned and she was noted to have left-sided weakness by the fur dyer. She was brought into the emergency room where her symptoms had resolved. She does not recall coming into the hospital. She recalls talking to one of her daughters on the phone and the next thing she knew she was in the emergency room. She stated she remembers the emergency room "sort of". She believes she was confused. In the emergency room, she had diarrhea and had an elevated white blood cell count. She had a CT scan of the brain, interpreted as showing atrophy and chronic ischemic changes. Currently, she feels well. She does not have any headache and she does not believe she bit her tongue. She is not sore anywhere. She was not incontinent of urine to the best that she is aware. There is no prior history of episodes of unresponsiveness, stroke, transient hemiplegia or seizures. There is no history of traumatic brain injury or family history of epilepsy. PAST MEDICAL HISTORY: Notable for hypertension, appendectomy, hysterectomy, cholecystectomy. MEDICATIONS: At home are: 1. Aspirin 81 mg p.o. daily. 2. Amlodipine 5 mg p.o. daily. 3. Lisinopril 20 mg p.o. daily. ALLERGIES: She is reportedly allergic to MEPERIDINE, reaction unknown. REVIEW OF SYSTEMS: Currently, negative for chest pain, shortness of breath, headaches, change in vision, falls. She does not use any assistive devices at home. No history of diabetes or alcohol abuse. She has not any recent chills or fevers until last night. Her weight has been stable. PHYSICAL EXAMINATION: She is well nourished and well hydrated. Her most recent temperature is 99.9 by temporal scan , blood pressure 138/48, heart rate in the 90s and regular. Respiratory rate is 20, oxygen saturation is 100% on room air. Lungs are clear bilaterally. Heart is in a regular rhythm and I do not hear any murmurs. Oral mucosa is moist and atraumatic. Neck is supple. There are no cervical bruits. She has ecchymosis in the antecubital areas bilaterally. Neurological Exam: Pupils react equally from 3 mm to 2 mm. Funduscopic exam reveals sharp disks bilaterally. Eye movements are notable for markedly diminished upward gaze. Visual cline are full to confrontation. Facial musculature is symmetric. Palate and tongue appear normal and speech is clear. Palate rises symmetrically and tongue protrudes in the midline. Facial sensation to temperature and light touch is intact. Hearing is intact to tuning fork bilaterally. Neck strength intact. Motor exam reveals normal muscle tone and strength proximally and distally in the upper and lower extremities. There is no drift of any limb. Sensory exam is intact to light touch, temperature, and vibration in the limbs distally. Earevj-tl-rhlg maneuvers are normal. There is no rest tremor. Finger taps are normal in the hands. Reflexes are hypoactive in the arms, grade 1 at the knees, trace at the ankles. Plantar responses are flexor bilaterally. I did not attempt to ambulate her. She is alert and oriented to person, place, and time. She cannot provide any of the details about coming into the hospital, but she can supply some about her emergency room stay. Language is fluent. DIAGNOSTIC STUDIES/LAB DATA: Laboratory data includes an MRI of the brain, which I reviewed. It reveals a fair amount of chronic white matter disease consistent with subcortical small vessel disease. There is no evidence of any acute infarctions. CT angiogram of the head and neck does not reveal any significant intracranial or extracranial stenosis. EEG done earlier today reveals some slowing of background rhythms, but no epileptiform discharges. Laboratory data includes an elevated white blood cell count when she came in yesterday of 20,000, elevated neutrophils at 90.1%. White count is down this morning to 17,100. Urinalysis is notable for 2+ blood, 1+ leukocyte esterase, 1 + white blood cells. Chemistry profile notable for glucose of 286 when she came in, creatinine was elevated at 1.23 and has come down to 0.76. Lactic acid was elevated yesterday at 1710 at 2.7, down to 1.4 by 0545 this morning. Liver enzymes are normal. Cholesterol 235, LDL 159, which was not a fasting lipid profile. IMPRESSION AND PLAN: I am very suspicious Ms. Rand had a focal seizure with altered awareness. A transient ischemic attack is a possibility, but I would not expect it to be so amnestic. I think with a single episode, I would not recommend anticonvulsants. I did advise Ms. Rand that she should not drive and needs to notify the Department of Motor Vehicles about the diagnosis of a possible seizure. In regards to the possibility of a cerebrovascular event, when she has atrial fibrillation overnight, I would just switch her aspirin to Plavix. She has a transthoracic echocardiogram pending, and if that reveals potential cardioembolic source, then we will have to rethink her therapy. If it does not reveal a potential cardioembolic source, I would just go ahead with it and switch to Plavix. I will see her in followup in my office, and I would be happy to discuss my opinion with her family, particularly in regards to risk of recurrent seizures and anticonvulsant medications. I have discussed my impression with Lilliam Ruiz NP. [id number]/[facility] #: [id number] TOR
[2017-08-02] MEDS: Heparin VIAL(*) 5000 UNITS/ML VIAL (FIVE THOUSAND) SUBCUT SCH ×2 (05:41→13:24)
--- NOTE | 2017-08-02 08:39 | EEG ---
ELECTROENCEPHALOGRAM REPORT: DATE OF STUDY: 08/01/17 LOCATION: She is an inpatient in room 441. REFERRING PROVIDER: Grace Boateng NP. CLINICAL PROBLEM: The patient was found with left-sided weakness and unresponsiveness yesterday. Her symptoms resolved upon arrival to the hospital. MEDICATIONS: Include atorvastatin, aspirin, Norvasc. EEG DESCRIPTION: This 16-channel EEG is remarkable for background rhythms consisting of a reasonably well formed alpha rhythm mainly in the right occipital derivations at about 8 to 8.5 cycles per second. There is lower abundance, lower amplitude alpha rhythm in the left occipital derivations at approximately 8 to 9 cycles per second. The patient drowses and sleeps intermittently through portions of the tracing with vertex slowing and sleep spindles seen symmetrically. Activation procedures are not attempted. There are no epileptiform discharges during the recording. INTERPRETATION: Borderline abnormal EEG due to relative slowing and decrease in amplitude of left occipital rhythms. This may represent some generalized dysfunction from the left hemisphere, but there are no epileptiform features to the recording. [id number]/[facility] #: [id number] [facility]
[2017-08-02] MEDS: Aspirin EC TAB* 81 MG TAB.EC PO SCH (08:57)
[2017-08-02] MEDS: amLODIPine TAB* 5 MG PO SCH (08:57)
[2017-08-02 13:03] VITALS: BP 137/48
--- NOTE | 2017-08-02 17:38 | DCNOTE ---
Subjective Date of Service: 08/02/17 Interval History: . patient reports she feels that she can go home. Earlier today she told the nurse she feels that she can not go home due to these stairs but when PT came to evaluate she refused to work with them. She then told me she feels comfortable going home. She does feel that it is getting harder to live at home by herself but states she still manages and her son helps her. She reports she has some stairs to climb and feels that these are getting more difficult but reports she feels that she can climb them safely. She denies any cough, SOB, CP. No runny nose, sore throat or URI. No urinary symptoms. Denies abdominal pain. No diarrhea. She reports otherwise she feels well. Objective Active Medications: Acetaminophen (Tylenol Tab*) 650 mg PO Q6H PRN PRN Reason: FEVER/PAIN Last Admin: 08/01/17 17:25 Dose: 650 mg Amlodipine Besylate (Norvasc Tab*) 5 mg PO DAILY [facility] Last Admin: 08/02/17 08:57 Dose: 5 mg Aspirin (Aspirin Ec Tab*) 81 mg PO DAILY [facility] Last Admin: 08/02/17 08:57 Dose: 81 mg Atorvastatin Calcium (Lipitor*) 40 mg PO 1700 [facility] Last Admin: 08/01/17 17:18 Dose: 40 mg Heparin Sodium (Porcine) (Heparin Vial(*)) 5,000 units SUBCUT Q8HR [facility] Last Admin: 08/02/17 13:24 Dose: 5,000 units Iodixanol (Visipaque* 320 (Contrast)) 80 ml IV ONCE [facility] Stop: 08/02/17 18:47 Last Admin: 07/31/17 20:42 Dose: 80 ml Ondansetron HCl (Zofran Odt Tab*) 4 mg SL Q6H PRN PRN Reason: NAUSEA/VOMITING Vital Signs - 8 hr 08/02/17 11:11 Temperature 98.8 F Pulse Rate 83 Respiratory 18 Rate Blood Pressure 137/48 (mmHg) O2 Sat by Pulse 98 Oximetry Oxygen Devices in Use Now: None Appearance: well developed elderly female sitting up on the side of the bed in NAD A+Ox3 Eyes: No Scleral Icterus, PERRLA Ears/Nose/Mouth/Throat: NL Teeth, Lips, Gums, Mucous Membranes Moist Neck: NL Appearance and Movements; NL JVP Respiratory: Symmetrical Chest Expansion and Respiratory Effort, Clear to Auscultation Cardiovascular: NL Sounds; No Murmurs; No JVD, RRR, No Edema Abdominal: NL Sounds; No Tenderness; No Distention Lymphatic: No Cervical Adenopathy Extremities: No Edema, No Clubbing, Cyanosis Skin: No Rash or Ulcers, No Nodules or Sclerosis Neurological: Alert and Oriented x 3, NL Sensation, NL Gait, NL Muscle Strength and Tone Lines/Tubes/Other Access: Clean, Dry and Intact Peripheral IV Nutrition: Taking PO's Result Diagrams: 08/01/17 05:44 08/01/17 05:44 Additional Lab and Data: Lab Results 07/31/17 07/31/17 07/31/17 Range/Units 16:29 16:51 17:10 WBC 20.0 H (3.5-10.8) 10^3/ul RBC 4.82 (4.0-5.4) 10^6/ul Hgb 14.8 (12.0-16.0) g/dl Hct 44 (35-47) % MCV 91 (80-97) fL MCH 31 (27-31) pg MCHC 34 (31-36) g/dl RDW 13 (10.5-15) % Plt Count 285 (150-450) 10^3/ul MPV 7.2 L (7.4-10.4) um3 Neut % (Auto) 90.1 H (38-83) % Lymph % (Auto) 5.4 L (25-47) % [place] % (Auto) 3.7 (0-7) % Eos % (Auto) 0.4 (0-6) % Baso % (Auto) 0.4 (0-2) % Absolute Neuts (auto) 18.1 H (1.5-7.7) 10^3/ul Absolute Lymphs (auto) 1.1 (1.0-4.8) 10^3/ul Absolute Monos (auto) 0.7 (0-0.8) 10^3/ul Absolute Eos (auto) 0.1 (0-0.6) 10^3/ul Absolute Basos (auto) 0.1 (0-0.2) 10^3/ul Absolute Nucleated RBC 0 10^3/ul Nucleated RBC % 0 INR (Anticoag Therapy) 0.87 (0.77-1.02) APTT 25.7 L (26.0-36.3) seconds Sodium (139-145) mmol/L Potassium (3.5-5.0) mmol/L Chloride (101-111) mmol/L Carbon Dioxide (22-32) mmol/L Anion Gap (2-11) mmol/L BUN (6-24) mg/dL Creatinine (0.51-0.95) mg/dL Est GFR ( Amer) (>60) Est GFR (Non-Af Amer) (>60) BUN/Creatinine Ratio (8-20) Glucose (70-100) mg/dL POC Glucose (mg/dL) 189 H (70-100) mg/dL Lactic Acid (0.5-2.0) mmol/L Calcium (8.6-10.3) mg/dL Total Bilirubin (0.2-1.0) mg/dL AST (13-39) U/L ALT (7-52) U/L Alkaline Phosphatase (34-104) U/L Troponin I (<0.04) ng/mL Total Protein (6.4-8.9) g/dL Albumin (3.2-5.2) g/dL Globulin (2-4) g/dL Albumin/Globulin Ratio (1-3) Triglycerides mg/dL Cholesterol mg/dL LDL Cholesterol mg/dL HDL Cholesterol mg/dL Blood Type Antibody Screen 07/31/17 07/31/17 07/31/17 Range/Units 17:10 17:10 17:10 WBC (3.5-10.8) 10^3/ul RBC (4.0-5.4) 10^6/ul Hgb (12.0-16.0) g/dl Hct (35-47) % MCV (80-97) fL MCH (27-31) pg MCHC (31-36) g/dl RDW (10.5-15) % Plt Count (150-450) 10^3/ul MPV (7.4-10.4) um3 Neut % (Auto) (38-83) % Lymph % (Auto) (25-47) % [place] % (Auto) (0-7) % Eos % (Auto) (0-6) % Baso % (Auto) (0-2) % Absolute Neuts (auto) (1.5-7.7) 10^3/ul Absolute Lymphs (auto) (1.0-4.8) 10^3/ul Absolute Monos (auto) (0-0.8) 10^3/ul Absolute Eos (auto) (0-0.6) 10^3/ul Absolute Basos (auto) (0-0.2) 10^3/ul Absolute Nucleated RBC 10^3/ul Nucleated RBC % INR (Anticoag Therapy) (0.77-1.02) APTT (26.0-36.3) seconds Sodium 132 L (139-145) mmol/L Potassium 3.5 (3.5-5.0) mmol/L Chloride 99 L (101-111) mmol/L Carbon Dioxide 22 (22-32) mmol/L Anion Gap 11 (2-11) mmol/L BUN 21 (6-24) mg/dL Creatinine 1.23 H (0.51-0.95) mg/dL Est GFR ( Amer) 53.5 (>60) Est GFR (Non-Af Amer) 41.6 (>60) BUN/Creatinine Ratio 17.1 (8-20) Glucose 286 H (70-100) mg/dL POC Glucose (mg/dL) (70-100) mg/dL Lactic Acid 2.7 H* (0.5-2.0) mmol/L Calcium 9.3 (8.6-10.3) mg/dL Total Bilirubin 0.40 (0.2-1.0) mg/dL AST 20 (13-39) U/L ALT 14 (7-52) U/L Alkaline Phosphatase 64 (34-104) U/L Troponin I 0.00 (<0.04) ng/mL Total Protein 6.6 (6.4-8.9) g/dL Albumin 4.0 (3.2-5.2) g/dL Globulin 2.6 (2-4) g/dL Albumin/Globulin Ratio 1.5 (1-3) Triglycerides 126 mg/dL Cholesterol 235 mg/dL LDL Cholesterol 159 mg/dL HDL Cholesterol 50.6 mg/dL Blood Type O Negative Antibody Screen Negative Microbiology and Other Data: Microbiology 07/31/17 18:52 Stool Gross Appearance - Final Stool Shiga Toxin I & II - Final Negative Shiga Toxin 1 & 2 Assess/Plan/Problems-Billing Assessment: Ms. Rand is a 86 yo female with a PMH of HTN who presented 5/6 with report of left-sided weakness who was found to have an unresponsive episode followed by left-sided weakness. - Patient Problems (1) Change in mental status Comment: appreciate neuro consult - suspects seizure with post-ictal phase. EEG showing some slowing. MRI showing no acute CVA.Plan to DC ASA and started Plavix using mon-therapy only. No Afib noted. (2) Leukocytosis Comment: - unclear etiology. Suspect 2nd to seizure activity. No obvious signs of infection. urine cx negative, chest xray negative. afebrile. (3) HTN (hypertension) Comment: controlled on home dose norvasc (4) DVT prophylaxis Comment: HSQ (5) Full code status Status and Disposition: OBV. stable for DC to home
--- NOTE | 2017-08-03 14:28 | DS ---
CC: Dr. Richardson * DISCHARGE SUMMARY: DATE OF ADMISSION: 07/31/17 DATE OF DISCHARGE: 08/02/17. PROVIDER: Mike Michele NP. ATTENDING PHYSICIAN: Dr. Balderas * (report dictated by Mike Michele NP). PRIMARY CARE PROVIDER: Dr. Richardson. DISCHARGE DIAGNOSES: 1. Unresponsive episode of suspected seizure. 2. Leukocytosis, unclear etiology. SECONDARY DIAGNOSES: 1. Hypertension. 2. Aortic aneurysm. 3. Status post cholecystectomy 4. Status post tonsillectomy. 5. Status post appendectomy. 6. Status post hysterectomy. 7. History of skin cancer on the right arm and neck. DISCHARGE MEDICATIONS: 1. Aspirin 81 mg p.o. daily. 2. Amlodipine 5 mg p.o. daily. 3. Lisinopril 20 mg p.o. daily. 4. Evista 60 mg p.o. daily. HISTORY OF PRESENT ILLNESS AND HOSPITAL COURSE: Please see history and physical by Grace Boaetng NP, for full admission details, but in summary, this is an 86-year-old female with a past medical history as stated above, who lives at home independently, who had an unresponsive episode followed by left sided weakness. Ms. Rand presented to the emergency department after an ambulance was called from her daughter who was talking to her over the phone and the phone became disconnected unexpectedly. The daughter tried calling back but there was no answer. At that time, the daughter contacted to try to check the patient and she was found sitting in her recliner chair and it was reported that she was minimally responsive and therefore EMS was called. On EMS' arrival, they reported she had left sided facial droop and left-sided weakness in both upper and lower extremities. The patient was noted to be very confused for several hours after the incident. She underwent a CT scan in the emergency department which showed no acute stroke. No evidence of gross acute stroke, infarct, mass effect, or hemorrhage. As well, she underwent a head CTA which showed no evidence of a hemodynamically significant carotid stenosis or evidence for large vessel intracranial thrombus. She was admitted to the hospitalist service, telemetry unit, and was seen in consultation by neurologist Dr. Mejia who suspects this is most likely a seizure with the reported postictal state. She did undergo an EEG which revealed some slowing of the background rhythm but no epileptiform discharges. Due to it being a single episode, there was no recommendation for anticonvulsants at this time. The patient was monitored on telemetry and there was no noted atrial fibrillation. She underwent a transthoracic echo-cardiogram that showed an EF of 60% to 65% but normal left ventricular systolic function and global left ventricular wall motion contractility are within normal limits with trace to mild aortic regurgitation, no evidence of mitral regurgitation, trace tricuspid regurgitation, no significant pericardial effusion. Dr. Mejia recommends switching daily aspirin to Plavix 75 mg p.o. daily to be on a monotherapy only. She did undergo a brain MRI which showed the evidence of intracranial abnormality, atrophy, and moderate chronic small vessel ischemic changes. The patient has done well throughout her hospitalization. She has remained hemodynamically stable and afebrile throughout hospitalization. She had a leukocytosis noted at 20k on admission of unclear etiology. This is possibly secondary to unresponsive episode, she also presented with a mildly elevated lactic acid. Her lactic acid resolved with IV fluids and thought to be secondary to the possible seizure activity. Yesterday, her white blood cell count was still elevated; however, she has no clinical signs of infection and her urine culture did return with no growth. She has no cough or upper respiratory symptoms. She has not required oxygen throughout the hospitalization. Her chest x-ray shows no evidence for acute disease. I recommend the patient have followup labs on Tuesday with results to Dr. Richardson. The patient is stable for discharge to home. I spoke with Dr. Diop, neurologist , today who states the patient is to follow up with the neurology service as an outpatient. The patient was instructed that she may not drive and for any further concerning symptoms, she needs to return to the emergency department or notify her primary care provider. The patient has had no further seizure activity throughout her hospitalization. DISCHARGE PLANNIN. Follow up with Dr. Richardson within 3 to 5 days. 2. Follow up with Dr. Diop, neurologist, in 1 to 2 months. 3. The patient was instructed no driving. 4. Please note the patient's aspirin is to be discontinued with initiation of Plavix 75 mg p.o. daily per neurology for mono-platelet therapy. 5. For any concerning symptoms, the patient is to return to the emergency department or notify her primary. 6. Followup lab work in 3 days with a CBC. TIME SPENT: Approximately 60 minutes was spent on this discharge. MIKE MICHELE, SEO PROFESSIONAL [id number]/[facility] #: [id number] [facility]
== END 2017-08-02 17:56 | disposition home or self-care (01) ==
LOC: ED 16:12 → MEDTELE 18:06
PROVIDERS: ADMIT Internal Medicine; ATTEND Internal Medicine
DX: R56.9 Unspecified convulsions (principal); R41.82 Altered mental status, unspecified; D72.829 Elevated white blood cell count, unspecified; R40.4 Transient alteration of awareness; I10 Essential (primary) hypertension; I71.9 Aortic aneurysm of unspecified site, without rupture; Z90.49 Acquired absence of other specified parts of digestive tract; Z90.89 Acquired absence of other organs; Z90.710 Acquired absence of both cervix and uterus; Z79.82 Long term (current) use of aspirin; R05 Cough
CPT/HCPCS: 36415; 70450; 70496; 70498; 70551; 71045; 80048; 80053; 80061; 81003; 81015; 83036; 83605; 84484; 85025; 85610; 85730; 86140; 86850; 86900; 86901; 87045; 87046; 87086; 87899; 93005; 93306; 95819; 99285; A9270-GY; G0378; G8978-GP-CI; G8979-GP-CH; J1644; Q9967